=== PATIENT | male | born 1990 | race African-American/Black ===

== ENCOUNTER 2025-02-21 16:52 | Emergency (ER) | payer SELFPAY ==
[~2025-02-21] VITALS: Ht 182.9 cm; Wt 91.0 kg
[2025-02-21 16:58] VITALS: O2SAT 98
[2025-02-21] MEDS: KETOROLAC 30MG/ML VIAL IM ONE (18:41)
[2025-02-21] MEDS: CYCLOBENZAPRINE 10MG TABLET PO ONE (18:41)
[2025-02-21] MEDS: LIDOCAINE 5% PATCH TOP SCH (18:41)
[2025-02-21] MEDS ORDERED: CYCL10TA21 MT (19:55)
[2025-02-21] MEDS ORDERED: KETO10TA2 MT (19:55)
[2025-02-21] MEDS ORDERED: LIDO700A30 TP (19:55)
[2025-02-21] MEDS ORDERED: BO1 TP (19:55)
[2025-02-21] MEDS: BACITRACIN ZINC OINT UDPKT TOP ONE (20:28)
[2025-02-21 20:29] VITALS: BP 133/70; PULSE 60; RESP 14; TEMP 36.7; O2SAT 99
== END 2025-02-21 20:32 | disposition home or self-care (01) ==
LOC: ER 16:52
DX: S00.81XA Abrasion of other part of head, initial encounter (principal); M25.511 Pain in right shoulder; M25.521 Pain in right elbow; X58.XXXA Exposure to other specified factors, initial encounter; Y93.9 Activity, unspecified; Y92.89 Other specified places as the place of occurrence of the external cause; Y99.8 Other external cause status
CPT/HCPCS: 99284; 73030; 73060; 73070; 96372; J1885; 99283